=== PATIENT | female | born 1990 | race Caucasian/White ===

== ENCOUNTER 2018-02-12 11:18 | Emergency (ER) | payer OTHER ==
[2018-02-12] MEDS ORDERED: RABIES VACC, HUMAN DIPLOID/PF 2.5 UNIT VIAL (RABAVERT) IM ONE (12:21)
--- NOTE | 2018-02-12 12:24 | EDPHY ---
H & P Time Seen by Provider: 02/12/18 11:30 HPI/ROS: CC: needs rabies vaccination. HPI: 27 year old female who was bitten on had by a bat which subsequently was found to have rabies presents requesting final rabies vaccination in her 4 vaccination series. Initial bit occured in [place]. She had rabivert and rabies IG on the 2-3 days after the bite when she first presented for care She has have rabies vaccination on days 0. 3, 7, and today is day 14. She has had no symptoms to suggest active rabies. She has been in frequent contact with the clinical laboratory science professor from [place]. Patient has now moved to [place] and will establish residency here. PMH: as above SH: Nonsmoker. PE: Pleasant, wd/wn female. HEENT: normal, PERRL, moist mucous membranes. Normal motion of facial muscles. Neck: supple. Lungs: CTA Heart: RRR Abd: benign Ext: no sign of infection. Neuro: pleasant, alert, 0x3. Skin: warm and dry. Smoking Status: Never smoked Constitutional: Initial Vital Signs Temperature (C) 36.8 C 02/12/18 11:20 Heart Rate 79 02/12/18 11:20 Respiratory Rate 17 02/12/18 11:20 Blood Pressure 103/67 02/12/18 11:20 O2 Sat (%) 96 02/12/18 11:20 O2 Delivery Mode Room Air Allergies/Adverse Reactions: No Known Allergies Allergy (Unverified 02/12/18 11:19) Home Medications: Medication Instructions Recorded Ativan 02/12/18 Effexor Xr 02/12/18 Sarah 28 Tablet 02/12/18 MDM/Departure - MDM Medications Given: Discontinued Medications Rabies Vaccine Human Diploid Cell (Rabavert) 2.5 unit IM .ONCE ONE Stop: 02/12/18 12:22 Last Admin: 02/12/18 12:37 Dose: 2.5 unit ED Course/Re-evaluation: Rabies vaccination administered. I personally called and left a message for the estate planning director from [place] at the patients request. She will F/U with both the clinical laboratory science professor and with [facility] as needed. Differential Diagnosis: Diff dx considered: rabies vaccination required, rabies disease manifestations, cellulitis. - Depart Disposition: Home, Routine, Self-Care Clinical Impression: Rabies exposure, Rabies, need for prophylactic vaccination against Condition: Good Instructions: Rabies Vaccine (By injection), Rabies (ED) Additional Instructions: Follow-up at [facility] for Infectious Disease as needed. Return to the emergency department for any concerns. Welcome to [place]! Referrals: NONE *PRIMARY CARE P,. [Primary Care Provider] - As per Instructions Maciel Seals MD [Medical Doctor] - As per Instructions
[2018-02-12 12:55] VITALS: BP 118/76
== END 2018-02-12 12:45 | disposition home or self-care (01) ==
DX: Z20.3 Contact with and (suspected) exposure to rabies (principal); Z23 Encounter for immunization

== ENCOUNTER 2018-11-09 20:38 | Emergency (ER) | payer OTHER ==
[2018-11-09] MEDS ORDERED: NS 1,000 ML IV ONE (21:01)
[2018-11-09] MEDS ORDERED: ONDANSETRON 4 MG/2 ML VIAL IVP ONE (21:01)
--- NOTE | 2018-11-09 21:08 | EDPHY ---
H & P Time Seen by Provider: 11/09/18 20:46 HPI/ROS: CHIEF COMPLAINT: Abdominal pain, flu-like symptoms HISTORY OF PRESENT ILLNESS: Patient is a 28-year-old female with presents emergency department with abdominal pain. Her symptoms started last . She developed "flu-like symptoms."She described initial symptoms in her head. She had lightheadedness and dizziness. She reports that she had a fever. Her symptoms then moved to her chest. This subsequently moved to her mid abdomen. Today she describes pain above and below her umbilicus. She has had no nausea or vomiting. Patient has had yellow colored diarrhea. No dysuria frequency. No hematuria. Her last period was 3 weeks ago. REVIEW OF SYSTEMS: 10 systems were reveiwed and are negative with the exception of the elements mentioned in the history of present illness. Past Medical/Surgical History: Includes anxiety Smoking Status: Never smoked Physical Exam: 37.0, 126/85, 90, 16, 99% on room air GENERAL: Well-appearing, in no acute distress, alert. HEENT: Eyes normal to inspection, normal pharynx, no signs of dehydration. NECK: Normal, supple. RESPIRATORY: Clear to auscultation bilaterally, no rales, rhonchi or wheezing. CVS: Regular rate and rhythm, no rubs, murmurs, or gallops. ABDOMEN: Soft, nontender, nondistended, no organomegaly. Benign BACK: Normal to inspection, no CVA tenderness. SKIN: Normal color, no rash, warm, dry. No pallor. EXTREMITIES: No pedal edema, no calf tenderness, no Homans sign or cords, no joint swelling. NEURO/PSYCH: Alert and oriented, normal mood and affect, normal motor sensory exam. Constitutional: Initial Vital Signs Temperature (C) 37.0 C 11/09/18 20:42 Heart Rate 90 11/09/18 20:42 Respiratory Rate 16 11/09/18 20:42 Blood Pressure 126/85 H 11/09/18 20:42 O2 Sat (%) 99 11/09/18 20:42 O2 Delivery Mode Room Air Allergies/Adverse Reactions: No Known Allergies Allergy (Unverified 02/12/18 11:19) Home Medications: Medication Instructions Recorded Ativan 02/12/18 Effexor Xr 02/12/18 Sarah 28 Tablet 02/12/18 Hydrocodone/APAP 5/325 [[place] 1 - 2 tab PO Q4 #11 tab 11/09/18 5/325 (RX)] Promethazine HCl [Phenergan 25mg 25 mg PO Q6 #7 tab 11/09/18 (*)] Medical Decision Making ED Course/Re-evaluation: In the emergency department I discussed possible etiologies with the patient. I answered all her questions. IV was placed. Patient given normal saline 1 L IV for hydration. Laboratory studies were obtained. Patient's white count is 3. Chemistry panel is unremarkable. LFTs are normal. Lipase normal. UA negative. Influenza negative. negative. 2240: I discussed the results with the patient. I answered all her questions. I discussed further diagnostic options including CT imaging. I also discussed disposition options including admission and discharge. At this time the patient would prefer to hold off on CT imaging. She agrees with the plan for discharge home. She was given warnings prior to leaving. She will return worsening symptoms. I gave the patient warnings prior to leaving. Differential Diagnosis: My differential includes but is not limited to influenza, viral illness, pancreatitis, cholecystitis, cholangitis, small-bowel obstruction, perforation, urinary tract infection - Data Points Laboratory Results: Laboratory Results 11/09/18 20:55 11/09/18 20:55 11/09/18 11/09/18 11/09/18 21:00 20:55 20:55 WBC RBC Hgb Hct MCV MCH MCHC RDW Plt Count Sodium 139 mEq/L mEq/L (135-145) Potassium 3.5 mEq/L mEq/L (3.5-5.2) Chloride 103 mEq/L mEq/L (97-110) Carbon Dioxide 26 mEq/l mEq/l (22-31) Anion Gap 10 mEq/L mEq/L (6-14) BUN 10 mg/dL mg/dL (7-23) Creatinine 0.8 mg/dL mg/dL (0.6-1.0) Estimated GFR > 60 Glucose 88 mg/dL mg/dL (70-100) Calcium 9.0 mg/dL mg/dL (8.5-10.4) Total Bilirubin 0.4 mg/dL mg/dL (0.1-1.4) Conjugated Bilirubin 0.4 mg/dL mg/dL (0.0-0.5) Unconjugated Bilirubin 0.0 mg/dL mg/dL (0.0-1.1) AST 46 IU/L IU/L (14-46) ALT 39 IU/L IU/L (9-52) Alkaline Phosphatase 61 IU/L IU/L (38-126) Total Protein 6.4 g/dL g/dL (6.3-8.2) Albumin 3.8 g/dL g/dL (3.5-5.0) Lipase 161 IU/L IU/L (23-300) Beta HCG, Qual NEGATIVE Urine Color Urine Appearance Urine pH Ur Specific [place] Urine Protein Urine Ketones Urine Blood Urine Nitrate Urine Bilirubin Urine Urobilinogen Ur Leukocyte Esterase Urine RBC Urine WBC Ur Epithelial Cells Urine Bacteria Urine Glucose Nasal Influenza A PCR NEGATIVE FOR FLU A (NEGATIVE) Nasal Influenza B PCR NEGATIVE FOR FLU B (NEGATIVE) RSV (PCR) NEGATIVE FOR RSV (NEGATIVE) 11/09/18 11/09/18 20:55 20:47 WBC 3.63 10^3/uL L 10^3/uL (3.80-9.50) RBC 4.53 10^6/uL 10^6/uL (4.18-5.33) Hgb 13.9 g/dL g/dL (12.6-16.3) Hct 40.6 % % (38.0-47.0) MCV 89.6 fL fL (81.5-99.8) MCH 30.7 pg pg (27.9-34.1) MCHC 34.2 g/dL g/dL (32.4-36.7) RDW 11.9 % % (11.5-15.2) Plt Count 273 10^3/uL 10^3/uL (150-400) Sodium Potassium Chloride Carbon Dioxide Anion Gap BUN Creatinine Estimated GFR Glucose Calcium Total Bilirubin Conjugated Bilirubin Unconjugated Bilirubin AST ALT Alkaline Phosphatase Total Protein Albumin Lipase Beta HCG, Qual Urine Color PALE YELLOW Urine Appearance CLEAR Urine pH 7.0 (5.0-7.5) Ur Specific [place] 1.003 (1.002-1.030) Urine Protein NEGATIVE (NEGATIVE) Urine Ketones NEGATIVE (NEGATIVE) Urine Blood 1+ H (NEGATIVE) Urine Nitrate NEGATIVE (NEGATIVE) Urine Bilirubin NEGATIVE (NEGATIVE) Urine Urobilinogen NEGATIVE EU EU (0.2-1.0) Ur Leukocyte Esterase NEGATIVE (NEGATIVE) Urine RBC 1-3 /hpf /hpf (0-3) Urine WBC 0-1 /hpf /hpf (0-3) Ur Epithelial Cells TRACE /lpf /lpf (NONE-1+) Urine Bacteria TRACE /hpf H /hpf (NONE SEEN) Urine Glucose NEGATIVE (NEGATIVE) Nasal Influenza A PCR Nasal Influenza B PCR RSV (PCR) Medications Given: Discontinued Medications Sodium Chloride (Ns) 1,000 mls @ 0 mls/hr IV EDNOW ONE; Wide Open PRN Reason: Protocol Stop: 11/09/18 21:02 Last Admin: 11/09/18 21:02 Dose: 1,000 mls Ondansetron HCl (Zofran) 4 mg IVP EDNOW ONE Stop: 11/09/18 21:02 Last Admin: 11/09/18 21:35 Dose: 4 mg Departure - Departure Disposition: Home, Routine, Self-Care Clinical Impression: Abdominal pain Qualifiers: Abdominal location: generalized Qualified Code(s): R10.84 - Generalized abdominal pain Condition: Good Instructions: Acute Abdominal Pain (ED) Additional Instructions: Return with increasing abdominal pain, persistent fever, vomiting, inability to tolerate oral intake or any other concerns. If your symptoms persist for more than 1-2 days return for further evaluation. Referrals: Harjinder Ocampo MD [Primary Care Provider] - 1 day without fail Prescriptions: Hydrocodone/APAP 5/325 [[place] 5/325 (RX)] 1 - 2 tab PO Q4 #11 tab Promethazine HCl [Phenergan 25mg (*)] 25 mg PO Q6 #7 tab
[2018-11-09] MEDS ORDERED: PROMETHAZINE 25 MG PREPACK #4 BTL TAKEHOME ONE ×2 (22:48→22:52)
[2018-11-09] MEDS ORDERED: HYDROCOD/APAP 5/325 PREPACK#6 BTL TAKEHOME ONE ×2 (22:48→22:52)
[2018-11-09 22:49] VITALS: BP 107/69
== END 2018-11-09 23:02 | disposition home or self-care (01) ==
DX: R10.84 Generalized abdominal pain (principal); R42 Dizziness and giddiness; E86.9 Volume depletion, unspecified
CPT/HCPCS: 96374; J2405